=== PATIENT | female | born 1950 | race Hispanic/Latino ===

== ENCOUNTER 2016-12-14 08:21 | Outpatient (CLI) | payer MEDICARE ==
--- NOTE | 2016-12-15 08:37 | Cat Scan Report ---
CT HEAD WITHOUT CONTRAST: 12/14/16 08:21:00 CLINICAL: Headache. TECHNIQUE: 2.5-mm noncontrast scans. COMPARISON:03/29/12 FINDINGS: The ventricles are normal for age. A few widened sulci are unchanged compared to the previous exam. No abnormal density. No mass or mass effect. No hemorrhage, edema or extra-axial collection. The sinuses are clear. Normal orbits and soft tissues. The calvarium and skull base are intact. IMPRESSION: Negative. No acute change.
== END 2016-12-14 08:22 | disposition home or self-care (01) ==
LOC: SPVIMAG 08:21
PROVIDERS: ATTEND Internal Medicine
DX: R51 Headache (principal)
CPT/HCPCS: 70450